=== PATIENT | female | born 1985 | race Hispanic/Latino ===

== ENCOUNTER 2018-05-09 09:11 | Emergency (ER) | payer OTHER ==
[2018-05-09 09:16] VITALS: BMI 36.2
--- NOTE | 2018-05-09 09:25 | ED PDOC ---
Arrival/HPI - General Chief Complaint: Chest Pain Historian: Patient, Spouse - History of Present Illness Narrative History of Present Illness (Text): 05/09/18 09:38 32 year old female, whose past medical history includes fibromyalgia, reynauds, hypothyrodism, cholecystectomy, tonsillectomy, and is allergic to penicillin and amoxicillin, presents to the emergency department complaining of chest pain for the past 2 weeks. She states the pain is intermittent and has been taking Tylenol with temporary relief. Patient reports associated lightheadedness and fpc exhaustion. She notes she has been worked up by her human resources office manager who diagnosed her with fibromyalgia, has not been compliant with her medication. Of note, LNMP was 1 week ago. She denies dysuria, hematuria, fevers, chills, cough, abdominal pain, nausea, vomiting, diarrhea, back pain, neck pain, or any other complaint. PMD: Dr. Schultz Time/Duration: > week Symptom Onset: Gradual Symptom Course: Unchanged Activities at Onset: Light Context: Home Past Medical History - Provider Review Nursing Documentation Reviewed: Yes - Past History Past History: No Previous - Infectious Disease Hx of Infectious Diseases: None - Tetanus Immunization Tetanus Immunization: Unknown - Past Medical History Past Medical History: No Previous - Cardiac Hx Pacemaker: No - Endocrine/Metabolic Hx Hypothyroidism: Yes Other/Comment: Reyndarrians - Hematological/Oncological Hx Blood Transfusions: No Hx Blood Transfusion Reaction: No - Musculoskeletal/Rheumatological Hx Musculoskeletal Disorders: No - Psychiatric Hx Depression: No Hx Emotional Abuse: No Hx Physical Abuse: No Hx Substance Use: No - Surgical History Hx Section: Yes Hx Cholecystectomy: Yes Hx Tonsillectomy: Yes - Anesthesia Hx Anesthesia: Yes Hx Anesthesia Reactions: No Hx Malignant Hyperthermia: No - Suicidal Assessment Feels Threatened In Home Enviroment: No Family/Social History - Physician Review Nursing Documentation Reviewed: Yes Family/Social History: No Known Family HX Smoking Status: Never Smoked Hx Alcohol Use: No Hx Substance Use: No Hx Substance Use Treatment: No Allergies/Home Meds Allergies/Adverse Reactions: Allergies amoxicillin Allergy (Verified 03/29/16 19:31) RASH Penicillins Allergy (Verified 03/29/16 19:32) RASH walnut Allergy (Verified 05/09/18 09:23) RASH Review of Systems - Physician Review All systems were reviewed & negative as marked: Yes - Review of Systems Constitutional: Other (lightheadeness, exhaustion ). absent: Fevers Eyes: absent: Vision Changes Respiratory: absent: Cough, Sputum, Wheezing Cardiovascular: Chest Pain Gastrointestinal: absent: Abdominal Pain, Diarrhea, Nausea, Vomiting Genitourinary Female: absent: Dysuria, Hematuria Musculoskeletal: absent: Back Pain, Neck Pain Neurological: absent: Dizziness Physical Exam Vital Signs Reviewed: Yes Vital Signs Pulse Resp BP 05/09/18 09:12 81 26 H 144/92 H Temperature: Afebrile Blood Pressure: Hypertensive Pulse: Regular Respiratory Rate: Tachypneic Appearance: Positive for: Well-Appearing, Non-Toxic, Comfortable Pain Distress: None Mental Status: Positive for: Alert and Oriented X 3 - Systems Exam Head: Present: Atraumatic, Normocephalic Pupils: Present: PERRL Extroacular Muscles: Present: EOMI Conjunctiva: Present: Normal Mouth: Present: Moist Mucous Membranes Neck: Present: Normal Range of Motion Respiratory/Chest: Present: Clear to Auscultation, Good Air Exchange. No: Respiratory Distress, Accessory Muscle Use Cardiovascular: Present: Regular Rate and Rhythm, Normal S1, S2. No: Murmurs Abdomen: No: Tenderness, Distention, Peritoneal Signs Back: Present: Normal Inspection Upper Extremity: Present: Normal Inspection. No: Cyanosis, Edema Lower Extremity: Present: Normal Inspection. No: Edema Neurological: Present: GCS=15, CN II-XII Intact, Speech Normal Skin: Present: Warm, Dry, Normal Color. No: Rashes Psychiatric: Present: Alert, Oriented x 3, Normal Insight, Normal Concentration Medical Decision Making ED Course and Treatment: 05/09/18 09:24 Impression: 32 year old female who presents to the emergency department complaining of chest pain. Pt notes x2 weeks of chest pain, as well as diffuse weakness for months for which she was diagnosed w/ fibromyalgia by her rheum. She notes that she has been non-compliant with her fibromyalgia meds however. Low pretest wells: PERC out Heart score RF: 0 Age: 0 Story: 0 trop: pend EK Plan: -- EKG -- Labs -- Chest X-ray -- POC Urine test -- Reassess and disposition Prior Visits: Notes and results from previous visits were reviewed. Progress Notes: EKG reviewed, shows: NSR at 88 BPM. No stemi. 05/09/18 10:50 labs unremarkable pending XR pt notes she does not want pain meds 05/09/18 12:10 XR unremarkable pt is symptoms free Heart score 0 clear for d/c home w/ return indications and f/u, pt is agreeable to plan. - Lab Interpretations I have reviewed the lab results: Yes - EKG Interpretation Interpreted by ED Physician: Yes Type: 12 lead EKG - Scribe Statement The provider has reviewed the documentation as recorded by the Franciaibger Fernandes Provider Scribe Attestation: All medical record entries made by the Scribe were at my direction and personally dictated by me. I have reviewed the chart and agree that the record accurately reflects my personal performance of the history, physical exam, medical decision making, and the department course for this patient. I have also personally directed, reviewed, and agree with the discharge instructions and disposition. Disposition/Present on Arrival - Present on Arrival Any Indicators Present on Arrival: No History of DVT/PE: No History of Uncontrolled Diabetes: No Urinary Catheter: No History of Decub. Ulcer: No History Surgical Site Infection Following: None - Disposition Have Diagnosis and Disposition been Completed?: Yes Diagnosis: Chest pain Disposition: HOME/ ROUTINE Disposition Time: 12:09 Patient Problems: Current Active Problems Problem Status Onset Chest pain Acute Condition: GOOD Discharge Instructions (ExitCare): Chest Pain (ED) Additional Instructions: SEE YOUR LICENSED DIRECT ENTRY MIDWIFE PLANNED OR SEE ONE WE HAVE RECCOMENDED FOR YOU. NINA FRYE, thank you for letting us take care of you today. Your provider was Berlin Schneider and you were treated for CHEST PAIN. The emergency medical care you received today was directed at your acute symptoms. If you were prescribed any medication, please fill it and take as directed. It may take several days for your symptoms to resolve. Return to the Emergency Department if your symptoms worsen, do not improve, or if you have any other problems. Please contact your doctor or call one of the physicians/clinics you have been referred to that are listed on the Patient Visit Information form that is included in your discharge packet. Bring any paperwork you were given at discharge with you along with any medications you are taking to your follow up visit. Our treatment cannot replace ongoing medical care by a primary care provider outside of the emergency department. Thank you for allowing the [facility] team to be part of your care today. If you had an X-Ray or CT scan: A Radiologist will review the ED reading if any change in treatment is needed we will contact you. If you had a blood, urine, or wound culture: It will take several days for the results, if any change in treatment is needed we will contact you. If you had an STI test: It will take 48 hours for the results. Please call after 1 week if you have not heard back. Referrals: Patrice Schultz MD [Primary Care Provider] - Follow up with primary Sanchez Chirinos MD [Staff Provider] - Follow up with primary Forms: [employer] ([place])
[2018-05-09 10:12] LABS: BASO # 0.03 K/mm3 (0.0-2.0); BASO % 0.3 % (0.0-3.0); EOS # 0.5 (0.0-0.7); EOS % 4.6 % (1.5-5.0); GRAN # 6.68 (1.4-6.5); GRAN % 68.4 % (50.0-68.0); HEMOGLOBIN 13.6 g/dL (12.0-16.0); LYMPH # 2.1 (1.2-3.4); LYMPH % 21.1 % (22.0-35.0); MEAN CELL VOLUME 90.2 fl (80.0-105.0); MEAN CORPUSCULAR HEMOGLOBIN 29.7 pg (25.0-35.0); MEAN CORPUSCULAR HGB CONC 32.9 g/dl (31.0-37.0); MEAN PLATELET VOLUME 9.5 fl (7.0-11.0); MONO # 0.6 (0.1-0.6); MONO % 5.6 % (1.0-6.0); RBC 4.58 10^6/uL (3.5-6.1); RED CELL DISTRIBUTION WIDTH 12.9 % (11.5-14.5); WHITE BLOOD COUNT 9.8 10^3/uL (4.5-11.0)
[2018-05-09 10:19] LABS: ALB/GLOB RATIO 1.4 (1.1-1.8); ALBUMIN 4.6 g/dL (3.0-4.8); ALT/SGPT 38 U/L (7-56); AST/SGOT 26 U/L (14-36); BLOOD UREA NITROGEN 15 mg/dL (7-21); CALCIUM 9.9 mg/dL (8.4-10.5); GFR NON-AFRICAN AMERICAN > 60
[2018-05-09 10:30] LABS: TROPONIN I < 0.01 ng/mL
[2018-05-09 12:17] VITALS: BP 155/86; PULSE 68; RESP 18; TEMP 98.2; O2SAT 98
--- NOTE | 2018-05-09 12:48 | RAD ---
Date of service: 05/09/2018 HISTORY: cp / sob COMPARISON: 10/31/2011 TECHNIQUE: Chest PA and lateral FINDINGS: LUNGS: No active pulmonary disease. PLEURA: No significant pleural effusion identified. No pneumothorax apparent. CARDIOVASCULAR: No aortic atherosclerotic calcification present. Normal cardiac size. No pulmonary vascular congestion. OSSEOUS STRUCTURES: No significant abnormalities. VISUALIZED UPPER ABDOMEN: Normal. OTHER FINDINGS: None. IMPRESSION: No active disease.
--- NOTE | 2018-05-09 19:39 | CARD ---
APPROVED REPORT Date of service: 05/09/2018 EKG Measurement Heart [id number] VT [id number] <Conclusion> Normal sinus rhythm Normal ECG
== END 2018-05-09 12:22 | disposition home or self-care (01) ==
LOC: ED 09:11
DX: R07.9 Chest pain, unspecified (principal)